=== PATIENT | female | born 1980 | race Caucasian/White ===

== ENCOUNTER 2017-12-07 12:11 | Outpatient (CLI) | payer OTHER ==
--- NOTE | 2017-12-19 07:51 | P.MSEPDOC ---
Presenting Problems - Arrival Data Date of Arrival on Unit: 12/07/17 Time of Arrival on Unit: 12:11 Mode of Transport: Ambulatory Physician Notification (Post) - Notification Comment Comment: Dr. Crawley assessed at bedside. Cervical check. Reactive NST, return for cervidil Tuesday Disposition - Disposition OB Disposition: Discharge to home, Written follow up instructions reviewed Discharge Date: 12/07/17 Discharge Time: 13:00 I agree with the RN Medical Screening Exam: Yes Physician's MSE Comment: I sent pt over from the office for tachycardia. In the hospital on the monitor the baby does not have tachycardia. The monitoring strip was reviewed with the RN and looks to have moderate variability and reactive. Risk & Benefit of care provided described in d/c instruction: Yes Diagnosis: SUPERVISION OF ELDERLY MULTIGRAVIDA, THIRD TRIMESTER
== END 2017-12-07 13:00 | disposition home or self-care (01) ==
LOC: FBPOP 12:11
PROVIDERS: ATTEND Obstetrics & Gynecology
DX: O09.523 Supervision of elderly multigravida, third trimester (principal); Z3A.00 Weeks of gestation of pregnancy not specified
CPT/HCPCS: 59025; 99213

== ENCOUNTER 2017-12-11 15:54 | Inpatient (IN) | payer OTHER ==
[2017-12-11] MEDS ORDERED: DINOPROSTONE 10 MG INSERT.ER VAGINAL ONE (15:59)
[2017-12-11] MEDS ORDERED: fentaNYL (PF) 50 MCG/ML 5 ML AMP ONE (16:10)
[2017-12-11] MEDS ORDERED: ROPIVACAINE 5MG/ML 20ML VIAL ONE (16:10)
[2017-12-11] MEDS ORDERED: SODIUM CHLORIDE 0.9% 100 ML BAG ONE (16:10)
[2017-12-11] MEDS ORDERED: BUTORPHANOL 1 MG/ML 1 ML VIAL IV PRN (16:48)
[2017-12-11 16:55] VITALS: BMI 49.1
[2017-12-12] MEDS: LACTATED RINGERS 1,000 ML IV SCH ×3 (05:52→14:31)
[2017-12-12] MEDS ORDERED: TERBUTALINE 1 MG/ML VIAL SQ PRN (05:53)
[2017-12-12] MEDS ORDERED: LIDOCAINE 0.5% (PF) 5 MG/ML (50 ML SDV) SQ PRN (05:53)
[2017-12-12] MEDS ORDERED: OXYTOCIN 10 UNIT/ML 1 ML VIAL IM PRN (05:53)
[2017-12-12] MEDS ORDERED: CARBOPROST TROMETHAMINE 250 MCG/ML 1 ML AMP IM PRN (05:53)
[2017-12-12] MEDS ORDERED: METHYLERGONOVINE 0.2 MG/ML 1 ML AMP IM PRN (05:53)
[2017-12-12] MEDS ORDERED: OXYTOCIN 20 UNITS/1000 ML NS 1,000 ML IV SCH ×2 (06:00→21:30)
[2017-12-12 06:52] LABS: Basophils % (A) 0 %; Eosinophils # (A) 0.1 k/uL (0-0.7); Eosinophils % (A) 2 %; HCT 33.9 % (34.0-46.0); HGB 11.1 gm/dL (11.4-16.0); Lymphocytes # (A) 2.2 k/uL (1.0-4.8); Lymphocytes % (A) 28 %; MCH 27.6 pg (25.0-35.0); MCHC 32.6 g/dL (31.0-37.0); MCV 84.8 fL (80.0-100.0); Mean Platelet Volume 7.8; Monocytes # (A) 0.4 k/uL (0-1.0); Monocytes % (A) 5 %; Neutrophils % (A) 64 %; Platelet Count 222 k/uL (150-450); RDW 13.5 % (11.5-15.5); WBC 7.8 k/uL (3.8-10.6)
[2017-12-12] MEDS ORDERED: HYDROCORTISONE 2.5% RECTAL CREAM 30 GM TUBE RECTAL PRN (21:28)
[2017-12-12] MEDS ORDERED: BENZOCAINE/MENTHOL SPRAY 1 GM/SPRAY AEROSOL TOPICAL PRN (21:28)
[2017-12-12] MEDS ORDERED: IBUPROFEN 600 MG TAB PO PRN (21:28)
[2017-12-12] MEDS ORDERED: WITCH HAZEL 1 EACH MED..PAD TOPICAL PRN (21:28)
[2017-12-12] MEDS ORDERED: SIMETHICONE 80 MG CHEWABLE PO PRN (21:28)
[2017-12-12] MEDS ORDERED: diphenhydrAMINE 25 MG CAP PO PRN (21:28)
[2017-12-12] MEDS ORDERED: LANOLIN CREAM 5 GM TUBE TOPICAL PRN (21:28)
[2017-12-12] MEDS ORDERED: ACETAMINOPHEN TAB 325 MG TAB PO PRN (21:28)
[2017-12-12] MEDS ORDERED: diphenhydrAMINE 50 MG CAP PO PRN (21:28)
[2017-12-12] MEDS ORDERED: ZOLPIDEM 5 MG TAB PO PRN (21:28)
[2017-12-12] MEDS ORDERED: diphenhydrAMINE 50 MG/ML 1 ML VIAL IVP PRN ×2 (21:28)
--- NOTE | 2017-12-12 21:33 | P.HPOB ---
History of Present Illness H&P Date: 12/11/17 Chief Complaint: Induction of labor 37-year-old presents at 39 weeks and 1 day for induction of labor. Her cervix was closed, 40% effaced and -3 station. heart tones 130-135 with moderate variability and reactive. She is not soy. Cervidil will be placed. Review of Systems All systems: negative Constitutional: Denies chills, Denies fever Eyes: denies blurred vision, denies pain Ears, nose, mouth and throat: Denies headache, Denies sore throat Cardiovascular: Denies chest pain, Denies shortness of breath Respiratory: Denies cough Gastrointestinal: Denies abdominal pain, Denies diarrhea, Denies nausea, Denies vomiting Genitourinary: Denies dysuria, Denies hematuria Musculoskeletal: Denies myalgias Integumentary: Denies pruritus, Denies rash Neurological: Denies numbness, Denies weakness Psychiatric: Denies anxiety, Denies depression Endocrine: Denies fatigue, Denies weight change Past Medical History Additional Past Medical History / Comment(s): gastric sleeve 2015, litotripsy 2007. Obstetric history: She has had 3 vaginal deliveries, this is her fourth . She's had care with me since the first trimester. Blood type O positive, abs negative, rubella immune, patient the negative, RPR nonreactive, GBS negative. History of Any Multi-Drug Resistant Organisms: None Reported Additional Past Surgical History / Comment(s): see above Past Anesthesia/Blood Transfusion Reactions: No Reported Reaction Past Psychological History: No Psychological Hx Reported Smoking Status: Never smoker Past Alcohol Use History: None Reported Past Drug Use History: None Reported - Past Family History Mother Family Medical History: No Reported History Medications and Allergies Home Medications Medication Instructions Recorded Confirmed Type No Known Home Medications 12/07/17 12/07/17 History Allergies Allergy/AdvReac Type Severity Reaction Status Date / Time No Known Allergies Allergy Verified 12/07/17 14:16 Exam Osteopathic Statement: *. No significant issues noted on an osteopathic structural exam other than those noted in the History and Physical/Consult. Vital Signs Temp Pulse Resp BP 12/11/17 23:15 97.2 F L 79 18 118/76 Intake and Output 12/12/17 12/12/17 12/12/17 06:59 14:59 22:59 Output Total 150 Balance -150 Output: Estimated Blood Loss 150 Other: # Voids 1 2 Heart: Regular rate and rhythm Lungs: Clear to auscultation bilaterally Abdomen: Soft, nontender Extremities: Negative Homans sign Results Result Diagrams: 12/12/17 05:52 Abnormal Lab Results - Last 24 Hours (Table) 12/12/17 Range/Units 05:52 Hgb 11.1 L (11.4-16.0) gm/dL Hct 33.9 L (34.0-46.0) % Assessment and Plan (1) Normal labor Current Visit: Yes Status: Acute Code(s): O80 - ENCOUNTER FOR FULL-TERM UNCOMPLICATED DELIVERY; Z37.9 - SNOMED Code(s): 92361183 (2) Advanced maternal age (AMA) in Current Visit: Yes Status: Acute Code(s): WJW6292 - SNOMED Code(s): 834307223 Plan: 1. 2-stage induction of labor for advanced maternal age. We will place Cervidil tonight and then amniotomy and Pitocin in the morning.
--- NOTE | 2017-12-12 21:36 | P.PROBDLV ---
Vaginal Delivery Note - . Vaginal Delivery Note: 37-year-old presents at 39 weeks and 1 day for induction of labor due to advanced maternal age. Her cervix was closed, 40% effaced, -3 station. She is not soy. heart tones 130-135 with moderate variability and reactive. Cervidil was placed. In the morning she was 1 cm dilated, 80% effaced, and -3 station. Pitocin was started. By noon she was 3 cm dilated. Amniotomy was performed at 12:47 PM clear fluid noted. Her cervix was completely dilated at 2003. She pushed, delivered a viable female over intact perineum under epidural anesthesia at 2010. Head delivered OA, anterior shoulder delivered gentle downward guidance followed by posterior shoulder and rest of body. Nose and mouth bulb suctioned, cord clamped and cut, placed mother's abdomen. Apgars 9, 9, weight 6 pounds 2.2 ounces. Placenta delivered spontaneously, intact with three-vessel cord at 2012. Vagina, cervix , and perineum were inspected. No lacerations noted. Estimated blood loss 200 mL. Mother and baby in stable condition.
[2017-12-13] MEDS: SENNOSIDES-DOCUSATE SODIUM 1 EACH TAB PO SCH ×2 (10:23→20:23)
[2017-12-14 02:44] VITALS: RESP 16; TEMP 97.9
--- NOTE | 2017-12-14 08:45 | P.DS ---
Providers Date of admission: 12/11/17 15:54 Expected date of discharge: 12/14/17 Attending physician: Margaux Crawley Primary care physician: Isabelle Mark - Discharge Diagnosis(es) (1) Normal labor Current Visit: Yes Status: Resolved (2) Advanced maternal age (AMA) in Current Visit: Yes Status: Resolved Hospital Course: Pt presented for induction of labor. She underwent normal vaginal delivery. Her pp course was uncomplicated. She will be discharged home PPD #2 in stable condition to follow up with me in 6 weeks. Denies N/V, F/C, CP, SOB or calf pain. Plan - Discharge Summary New Discharge Prescriptions: No Action No Known Home Medications Discharge Medication List No Known Home Medications 12/07/17 [History] Follow up Appointment(s)/Referral(s): Margaux Crawley DO [Doctor of Osteopathic Medicine] - 6 Weeks Discharge Disposition: HOME SELF-CARE
[2017-12-14 09:36] VITALS: BP 104/60; PULSE 124
[2017-12-14] MEDS: SENNOSIDES-DOCUSATE SODIUM 1 EACH TAB PO SCH (09:37)
== END 2017-12-14 13:00 | disposition home or self-care (01) | DRG 807 ==
LOC: 4FBP 15:54
PROVIDERS: ADMIT Obstetrics & Gynecology; ATTEND Obstetrics & Gynecology
PROC: 10E0XZZ Delivery of Products of Conception, External Approach (ICD-10-PCS; principal; 2017-12-12)
PROC: 3E0P7VZ Introduction of Hormone into Female Reproductive, Via Natural or Artificial Opening (ICD-10-PCS; 2017-12-12)
PROC: 3E033VJ Introduction of Other Hormone into Peripheral Vein, Percutaneous Approach (ICD-10-PCS; 2017-12-12)
PROC: 10907ZC Drainage of Amniotic Fluid, Therapeutic from Products of Conception, Via Natural or Artificial Opening (ICD-10-PCS; 2017-12-12)
PROC: 00HU33Z Insertion of Infusion Device into Spinal Canal, Percutaneous Approach (ICD-10-PCS; 2017-12-12)
PROC: 3E0R3BZ Introduction of Anesthetic Agent into Spinal Canal, Percutaneous Approach (ICD-10-PCS; 2017-12-12)
DX: O80 Encounter for full-term uncomplicated delivery (principal); Z37.0 Single live birth; Z3A.39 39 weeks gestation of pregnancy
CPT/HCPCS: 85025; 86850; 86900; 86901

== ENCOUNTER 2018-03-16 08:38 | Day surgery (SDC) | payer OTHER ==
[2018-02-28 12:22] VITALS: BMI 44.9
--- NOTE | 2018-03-16 07:46 | P.HPOB ---
History of Present Illness H&P Date: 03/16/18 Chief Complaint: Family planning 37-year-old presents for laparoscopic tubal ligation. Review of Systems All systems: negative Constitutional: Denies chills, Denies fever Eyes: denies blurred vision, denies pain Ears, nose, mouth and throat: Denies headache, Denies sore throat Cardiovascular: Denies chest pain, Denies shortness of breath Respiratory: Denies cough Gastrointestinal: Denies abdominal pain, Denies diarrhea, Denies nausea, Denies vomiting Genitourinary: Denies dysuria, Denies hematuria Musculoskeletal: Denies myalgias Integumentary: Denies pruritus, Denies rash Neurological: Denies numbness, Denies weakness Psychiatric: Denies anxiety, Denies depression Endocrine: Denies fatigue, Denies weight change Past Medical History Past Medical History: No Reported History Additional Past Medical History / Comment(s): Hx kidney stones. "Born with heart murmur, but I outgrew it." History of Any Multi-Drug Resistant Organisms: None Reported Past Surgical History: Bariatric Surgery Additional Past Surgical History / Comment(s): Gastric Sleeve 2016. Lithotripsy. Past Anesthesia/Blood Transfusion Reactions: No Reported Reaction, Family History of Problems w/ Anesthesia Additional Past Anesthesia/Blood Transfusion Reaction / Comment(s): Mom woke up during procedure. Past Psychological History: No Psychological Hx Reported Smoking Status: Never smoker Past Alcohol Use History: None Reported Past Drug Use History: None Reported - Past Family History Mother Family Medical History: Cancer Additional Family Medical History / Comment(s): Breast and Ovarian cancer. Medications and Allergies Home Medications Medication Instructions Recorded Confirmed Type Control Pill 1 tab PO QAM 02/28/18 03/15/18 History buPROPion [Wellbutrin] 300 mg PO QAM 02/28/18 03/15/18 History Allergies Allergy/AdvReac Type Severity Reaction Status Date / Time No Known Allergies Allergy Verified 03/15/18 10:50 Exam Osteopathic Statement: *. No significant issues noted on an osteopathic structural exam other than those noted in the History and Physical/Consult. Heart: Regular rate and rhythm Lungs: Clear to auscultation bilaterally Abdomen: Soft, nontender Extremities: Negative Homans sign Assessment and Plan (1) Family planning Status: Acute Code(s): Z30.09 - ENCOUNTER FOR OTH GENERAL CNSL AND ADVICE ON CONTRACEPTION SNOMED Code(s): 772222839 Plan: Laparoscopic tubal ligation
[~2018-03-16 08:38] MED LIST: DEXAMETHASONE SOD PHOSPHATE 10 MG/ML 1 ML VIAL IV ONE; LACTATED RINGERS 1,000 ML IV SCH; LIDOCAINE 1% 20 ML VIAL (10MG/ML) FOR IV START INTRADERMA PRN; MIDAZOLAM (PF) 2 MG/2 ML VIAL IV PRN; ONDANSETRON 4 MG/2 ML VIAL IVP ONE; Pre Op ABX Message 1 EACH MISC MISCELLANE ONE; fentaNYL (PF) 50 MCG/ML 2 ML AMP IV PRN
[2018-03-16] MEDS ORDERED: SCOPOLAMINE 1.5MG/72HR PATCH TRANSDERM ONE (09:31)
[2018-03-16] MEDS ORDERED: GLYCOPYRROLATE 0.2 MG/ML 2 ML VIAL ONE (09:52)
[2018-03-16] MEDS ORDERED: LIDOCAINE 1% INJ 10MG/ML (20 ML MDV) ONE (09:52)
[2018-03-16] MEDS ORDERED: ROCURONIUM BROMIDE 10 MG/ML 10 ML VIAL IV ONE (09:52)
[2018-03-16] MEDS ORDERED: PROPOFOL 10 MG/ML 20 ML VIAL IV ONE (09:52)
[2018-03-16] MEDS ORDERED: KETOROLAC 30 MG/ML 1 ML VIAL ONE (09:52)
[2018-03-16] MEDS ORDERED: fentaNYL (PF) 50 MCG/ML 2 ML AMP ONE (09:52)
[2018-03-16] MEDS ORDERED: NEOSTIGMINE 1 MG/ML 10 ML VIAL ONE (09:52)
[2018-03-16] MEDS ORDERED: MIDAZOLAM 2 MG/2 ML VIAL ONE (09:52)
[2018-03-16] MEDS ORDERED: BUPIVACAINE (PF) 0.25% 30 ML VIAL SQ ONE (09:57)
--- NOTE | 2018-03-16 10:38 | P.OP ---
Date of Procedure: 03/16/18 Preoperative Diagnosis: 1. Family planning Postoperative Diagnosis: 1. Family planning Procedure(s) Performed: Laparoscopic tubal ligation Anesthesia: MUSA Surgeon: Margaux Crawley Estimated Blood Loss (ml): 2 IV fluids (ml): 600 Urine output (ml): 75 Pathology: none sent Condition: stable Disposition: PACU Description of Procedure: Patient was taken to the operating room where general anesthesia was obtained without difficulty. She was prepped and draped in normal sterile fashion in the dorsal lithotomy position, legs placed in the [place] stirrups. Bladder drained of all urine. [place] speculum placed in the vagina and the anterior lip the cervix was grasped with single-tooth tenaculum. The uterus is sounded to 7 cm and the kroner manipulator was placed. Attention was then turned to the abdomen and gloves were changed. A 10 mm infraumbilical incision was made the scalpel and 10 mm optical trocar was placed under direct visualization. A 5 mm suprapubic Incision was made and a 5 mm optical trocar was placed under direct visualization. Survey of the pelvis revealed normal uterus tubes and ovaries. The left fallopian tube was grasped with a Kleppinger and fulgurated 2 -3 cm on this side in the ampullar portion. The right fallopian tube was grasped with a Kleppinger and fulgurated 2-3 cm in the ampullar portion. All instruments were then removed from the abdomen and vagina. The 10 mm infraumbilical incision was closed with 0 Vicryl and the fascial layer and then 4-0 Vicryl in a subcuticular fashion. The 5 mm incision was closed with 4-0 Vicryl in a subcuticular fashion. Patient tolerated procedure well, sponge and instrument counts correct 2 and she was taken to recovery room in stable condition.
[2018-03-16 10:53] VITALS: TEMP 97.4
[2018-03-16] MEDS: HYDROmorphone 1 MG/ML 1 ML SYRINGE IVP ONE ×2 (10:57→11:02)
[2018-03-16 11:16] VITALS: RESP 18
[2018-03-16 11:34] VITALS: BP 128/78; PULSE 78
== END 2018-03-16 11:55 | disposition home or self-care (01) ==
LOC: OR 08:38
PROVIDERS: ATTEND Obstetrics & Gynecology
DX: Z30.2 Encounter for sterilization (principal); Z87.442 Personal history of urinary calculi; Z98.84 Bariatric surgery status; Z80.3 Family history of malignant neoplasm of breast; Z80.41 Family history of malignant neoplasm of ovary; F32.9 Major depressive disorder, single episode, unspecified; Z79.3 Long term (current) use of hormonal contraceptives; Z79.899 Other long term (current) drug therapy
CPT/HCPCS: 81025; 58670; J2250; J1100; J2710; J2405; J2001; J3010; J1885; J1170; J2704

== ENCOUNTER → 2019-02-22 | Outpatient (CLI) | payer OTHER ==
--- NOTE | 2019-02-22 09:47 | MM ---
Reason for exam: clinical finding. Baseline mammogram. History: Family history of breast cancer in mother at age 36 and breast cancer in maternal grandmother at age 40. Took hormonal contraceptives beginning at age 18. Physical Findings: Nurse did not find any significant physical abnormalities on exam. MG Diagnostic Mammo w CAD [facility] Bilateral CC and MLO view(s) were taken. The breast tissue is almost entirely fat. 5.6mm nodule 13cm from nipple. These results were verbally communicated with the patient and result sheet given to the patient on 02/22/19. ASSESSMENT: Incomplete: need additional imaging evaluation, BI-RAD 0 RECOMMENDATION: Ultrasound of the left breast.
--- NOTE | 2019-02-22 09:48 | USB ---
Reason for exam: additional evaluation requested from abnormal screening. History: Family history of breast cancer in mother at age 36 and breast cancer in maternal grandmother at age 40. Took hormonal contraceptives beginning at age 18. US Breast Limited LT Left limited breast ultrasound including focal area of concern, retroareolar and axilla demonstrates no cystic or solid lesion seen. These results were verbally communicated with the patient and result sheet given to the patient on 02/22/19. ASSESSMENT: Probably benign, BI-RAD 3 RECOMMENDATION: Follow-up diagnostic mammogram of the left breast in 6 months.
== END ==
LOC: RADMAMWWP 08:44
PROVIDERS: ATTEND Obstetrics & Gynecology
DX: N63.0 Unspecified lump in unspecified breast (principal); R92.8 Other abnormal and inconclusive findings on diagnostic imaging of breast
CPT/HCPCS: 77066

== ENCOUNTER → 2019-12-26 | Outpatient (CLI) | payer OTHER | END | disposition home or self-care (01) | LOC: LABWHC1 12:30 | PROVIDERS: ATTEND Pediatrics Pediatric Infectious Diseases | DX: Z20.828 Contact with and (suspected) exposure to other viral communicable diseases (principal) | CPT/HCPCS: U0003; C9803 ==

== ENCOUNTER → 2023-04-20 | Outpatient (CLI) | payer OTHER ==
--- NOTE | 2023-04-21 08:25 | MM ---
Reason for Exam: Screening (asymptomatic). Last screening mammogram was performed 12 month(s) ago. Patient History: Menarche at age 13. First Full-Term at age 21. Premenopausal. Patient has history of breast feeding. Hormonal Contraceptives, from age 18 until age 36. Maternal grandmother had breast cancer, age 40. Mother had breast cancer, age 36. Last menstrual period: 04/14/2023 Risk Values: Tiffanie 5 year model risk: 1.3%. NCI Lifetime model risk: 18.0%. Prior Study Comparison: 02/22/2019 Bilateral Diagnostic Mammogram, [facility]. 04/19/2022 Bilateral MG 3D diag mammo w/cad [facility], [facility]. Tissue Density: There are scattered fibroglandular densities. Findings: Analyzed By CAD. There is no suspicious group of microcalcifications or new suspicious mass in either breast. Chronic nodularity left breast is stable. Benign calcifications. Overall Assessment: Benign, BI-RAD 2 Management: Screening Mammogram of both breasts in 1 year. . Patient should continue monthly self-breast exams. A clinical breast exam by your physician is recommended on an annual basis. This exam should not preclude additional follow-up of suspicious palpable abnormalities. Note on Tiffanie scores and lifetime risk: 1. A Tiffanie score greater than 3% is considered moderate risk. If this is the case, consider specialist referral to assess eligibility for a risk reducing agent. 2. If overall lifetime risk for the development of breast cancer is 20% or higher, the patient may qualify for future screening with alternating mammogram and breast MRI. Electronically signed and approved by: Geoff Kenney M.D. Radiologis
== END | disposition home or self-care (01) ==
LOC: RADMAMWWP 12:14
PROVIDERS: ATTEND Internal Medicine
DX: Z12.31 Encounter for screening mammogram for malignant neoplasm of breast (principal); Z80.3 Family history of malignant neoplasm of breast
CPT/HCPCS: 77063; 77067